=== PATIENT | female | born 1945 | race Caucasian/White ===

== ENCOUNTER → 2016-11-06 | Outpatient (CLI) | payer MEDICARE ==
--- NOTE | 2016-11-06 21:51 | PN ---
A 70-year-old female patient with symptomatic obstructive sleep apnea coming in for a followup. I am treating this patient with a CPAP pressure of 8 cm of water. The patient continues to be on same pressure settings. She is doing good and she is benefiting from the treatment. Her compliance data seems adequate. CPAP use on average of 7.6 hours per night. She is using her CPAP every night. Her AHI is down to 1.6 and her leak factor is only at 23 L per minute. No complaints. I noted her blood pressure to be elevated and I strongly urged the patient to see her primary care physician as soon as possible, knowing that today's blood pressure is around 180/94. BP is 180/94, pulse 64, respiratory rate 16, temperature 98.5, saturation is 98% on room air and weight is 187. Height is 5 feet 1 inch. GENERAL APPEARANCE: Calm, comfortable. HEENT: Negative for JVD. There is no goiter or neck mass. LUNGS: Clear to auscultation. HEART: Sounds are regular rate and rhythm. Normal S1, S2. No S3. No S4. No murmurs. ABDOMEN: Soft, nontender. No organomegaly. EXTREMITIES: No edema. No cyanosis or clubbing. IMPRESSION: Obstructive sleep apnea. Continues to receive successful continuous positive airway pressure with a pressure of 8 cm of water. PLAN: 1. Encourage weight loss. 2. Refill CPAP supplies. 3. No need for any pressure setting adjustments. 4. Will follow and see me back as needed at least in a year or two.
== END | disposition home or self-care (01) ==
LOC: SLEEP 13:34
PROVIDERS: ATTEND Internal Medicine Critical Care Medicine
DX: G47.33 Obstructive sleep apnea (adult) (pediatric) (principal)

== ENCOUNTER → 2022-03-13 | Outpatient (CLI) | payer MEDICARE ==
--- NOTE | 2022-03-13 14:48 | P.SLEEP ---
History of Present Illness H&P Date: 03/13/22 Chief Complaint: ABHINAV This is a 76-year-old female patient with known history of obstructive sleep apnea. The patient was diagnosed having obstructive sleep apnea more than 15 years ago. the patient's original diagnosis was made in 2009 She has sciatica, hypertension and diabetes mellitus as comorbid conditions. and back then the patient was found to have moderate to severe disease with an AHI of 17 and the patient was treated accordingly. Note that the patient was morbidly obese and she underwent Eddie-en-Y gastric bypass surgery. Her lowest bone was harvested 55 pounds and currently she is up to 186. I did a CPAP titration on her on 02/07/2016 and at a time I gave her a CPAP pressure of 8 cm of water. The patient using the same machine that she was given back in 2015 and this is a [employer]Med air sense 10 and she is also using regular jean fx small size nasal pi llows. Over the years, she has remained extremity compliant. She is coming in with issues related to the machine. She is awake and quite dry and she doesn't think the machine is consuming the water from the medication chamber. I checked her machine and the machine is functional. She is set at the humidity level of 4. Her current CPAP pressures of 8 cm of water. She is extremely compliant and the patient utilizing the machine every night. Her compliance for more than 4 hours as 100%. She has achieved an AHI of 0.9 while on treatment. Leaks are minimal and the patient has been utilizing the machine more than 4 hours 100% of the time and she's been averaging at least 7 hours of CPAP use per night. No new onset comorbidities.. The patient denies having any chest pain or shortness of breath while on treatment. Review of Systems Constitutional: Denies chills, Denies fever Eyes: bilateral decreased vision, denies as per HPI, denies blurred vision, denies bulging eye, denies diplopia, denies discharge, denies dry eye, denies irritation, denies itching, denies pain, denies photophobia, denies loss of peripheral vision, denies loss of vision, denies tunnel vision/blind spots Ears: deny: decreased hearing, ear discharge, earache, tinnitus Ears, nose, mouth and throat: Reports as per HPI Breasts: absent: as per HPI, change in shape, gynecomastia, masses, nipple discharge, pain, skin changes, swelling Cardiovascular: Reports as per HPI Respiratory: Reports as per HPI, Reports sleep apnea, Reports snoring Gastrointestinal: Reports as per HPI Genitourinary: Reports as per HPI Menstruation: Reports as per HPI Musculoskeletal: Reports as per HPI Musculoskeletal: absent: ankle pain, ankle stiffness, ankle swelling, as per HPI, elbow pain, elbow stiffness, elbow swelling, foot pain, foot stiffness, foot swelling, hand pain, hand stiffness, hand swelling, hip pain, hip stiffness, hip swelling, knee pain, knee stiffness, knee swelling, shoulder pain, shoulder stiffness, shoulder swelling, wrist pain, wrist stiffness, wrist swelling Integumentary: Reports as per HPI Neurological: Reports as per HPI Psychiatric: Reports as per HPI Endocrine: Reports as per HPI Hematologic/Lymphatic: Reports as per HPI Past Medical History Past Medical History: Diabetes Mellitus, Hypertension, Sleep Apnea/CPAP/BIPAP Past Surgical History: Section, Cholecystectomy, Tonsillectomy Additional Past Surgical History / Comment(s): Eddie-en-Y gastric bypass surgery Smoking Status: Never smoker Past Alcohol Use History: None Reported Past Drug Use History: None Reported Medications and Allergies Home Medications and Allergies Comment(s): not sure of the medication list and the patient has been taken a combination of medication including metformin, ranitidine and Celexa and pantoprazole and Claritin. She also has other medications for blood pressure and heart rate and the complete list is not available today. Physical Exam BP is 143/72, pulse is 82, respirations 16, temperature 98.0, saturation 96% on room air, body mass index is 35.7, [place] score is at 8, the neck size is 14.5 inches The patient appeared well nourished and normally developed. Vital signs as documented. Head exam is unremarkable. No scleral icterus or corneal arcus noted. Neck is without jugular venous distension, thyromegaly, or carotid bruits. Carotid upstrokes are brisk bilaterally. Lungs are clear to auscultation and percussion. Cardiac exam reveals the PMI to be normally sized and situated. Rhythm is regular. First and second heart sounds normal. No murmurs, rubs or gallops. Abdominal exam reveals normal bowel sounds, no masses, no organomegaly and no aortic enlargement. Extremities are nonedematous and both femoral and pedal pulses are normal.Examination of the skin revealed no evidence of significant rashes, suspicious appearing nevi or other concerning lesions.Neurologically, the patient is awake and alert and the patient does not have any focal neurological deficit. Cranial nerves are essentially intact. Assessment and Plan Plan: Obstructive sleep apnea, AHI of 17 diagnosed many years back and the patient is currently using a CPAP unit at a pressure of 8 cm of water. She is extremely compliant averaging more than 9 hours of CPAP using an AHI while on treatment is down to 0.9. Her main complaint is dryness and I'm not sure if the patient is able to fill the distal water any humidification chamber as she is having some vision problems. I the same time, she has regular tubing and humidity on the machine has been changed to level 4. Diabetes mellitus Hypertension Previous history of obesity and the patient undergone gastric Eddie-en-Y bypass s urgery. Her weight is up to 16 pounds with a body mass index of 35.7 Plan I checked the patient's CPAP machine and the machine is functional I'm going to continue using the same machine We will add a climate line With increased humidity level up to 5 for now Continue using the jean fx nasal pillows Encourage weight loss We will possibly consider updating her CPAP machine at a later stage if she continues to have difficulties. I think there is a problem with her vision where she is unable to fill the medication chamber with appropriate level of distal water. I asked her to get help with some family members. She lives in [facility]. See back in 6 months time. Sleep Note - Sleep Note Sleep Note: Temperature: Pulse Rate: Respiratory Rate: Blood Pressure: SpO2: Height: Weight: BMI: Neck Circumference:
== END | disposition home or self-care (01) ==
LOC: SLEEP 13:44
PROVIDERS: ATTEND Internal Medicine Critical Care Medicine
DX: Z53.9 Procedure and treatment not carried out, unspecified reason (principal)